=== PATIENT | female | born 1995 | race Two or more races ===

== ENCOUNTER 2024-12-31 21:16 | Emergency (ER) | payer SELFPAY ==
[~2024-12-31] VITALS: Ht 162.6 cm; Wt 77.9 kg
[2024-12-31 23:19] VITALS: BP 117/68; TEMP 97.1; O2SAT 100
== END 2024-12-31 23:47 | disposition left against medical advice (07) ==
LOC: M ED 21:16
DX: Z53.21 Procedure and treatment not carried out due to patient leaving prior to being seen by health care provider (principal)